=== PATIENT | male | born 1970 | race Hispanic/Latino ===

== ENCOUNTER 2024-01-16 12:45 | Emergency (ER) | payer SELFPAY ==
[2024-01-16 13:09] LABS: % Basophils 0.3 % (0-2); % Eosinophils 0.2 % (0-6); % Immature Granulocytes 0.6 % (0-0.5); % Lymphocytes 17.3 % (20.5-51.1); % Monocytes 3.9 % (1.7-9.3); % Neutrophils 77.7 % (42.2-75.2); Absolute Basophils 0.1 10^3/uL (0-0.2); Absolute Immature Granulocytes 0.1 10^3/uL (0-0.05); Absolute Lymphocytes 3.3 10^3/uL (1.2-3.4); Absolute Monocytes 0.7 10^3/uL (0.1-0.6); Absolute Neutrophils 14.5 10^3/uL (1.4-6.5); Hematocrit 42.6 % (39.0-52.0); Mean Corp Hgb Conc. 35.2 g/dL (33.0-37.0); Mean Corpuscular Hgb 29.8 pg (27.0-31.0); Mean Corpuscular Volume 84.7 fL (80.0-94.0); Nucleated Red Blood Cells % 0 % (-); Platelet Count 310 10^3/uL (130-400); Red Blood Cell Count 5.03 10^6/uL (4.70-6.10); Red Cell Dist. Width 12.8 % (11.5-14.5); White Blood Cell Count 18.7 10^3/uL (4.8-10.8)
[2024-01-16 13:24] LABS: ALT (SGPT) 33 U/L (0-50); AST (SGOT) 30 U/L (17-59); Albumin 4.7 g/dl (3.5-5.0); Alkaline Phosphatase 132 U/L (38-126); Blood Urea Nitrogen 21 mg/dl (9-20); Calcium 9.9 mg/dl (8.4-10.2); Carbon Dioxide 24 mmol/L (22-30); Chloride 104 mmol/L (98-107); Glucose 143 mg/dl (70-99); Lipase 81 U/L (23-300); Potassium 4.3 mmol/L (3.5-5.1); Sodium 136 mmol/L (135-145); Total Bilirubin 0.5 mg/dl (0.2-1.3); Total Protein 7.8 g/dl (6.3-8.2); eGFR > 60.00
--- NOTE | 2024-01-16 14:48 | ED.GENMED ---
History of Present Illness
General
Chief Complaint: Abdominal Pain
Source: patient
Exam Limitations: none
Time Seen by Provider: 01/16/24 14:48
Nursing documentation reviewed up to this point in time: agreed with
Travel History
Have you had any contact with someone who has COVID-19?: No
Do you have any symptoms of coronavirus? Fever > 100 degrees, chills, cough, shortness of breath, sore throat, loss of taste or smell, muscle aches, or headache?: No
History of Present Illness
History of Present Illness:
53-year-old male with no past medical history who is presenting to the emergency department today with left-sided abdominal pain radiating to the left groin, and left flank pain that started today. Patient was at work today, and was cutting wood
when he suddenly started to feel this pain. Patient states that he thought it was nothing at first and took some Tylenol, however the pain did not relieve with Tylenol and the pain continued to worsen. Patient is never had anything like this
before. Patient states some intermittent nausea but no vomiting. Patient states that any movement makes the pain worse. Patient denies dysuria, hematuria. Patient denies constipation or diarrhea. Patient denies any history of past abdominal
surgeries. Patient denies any chest pain, shortness of breath. Patient denies any allergies to any medications.
Review of Systems
Review of Systems
All Other Systems: ROS reviewed and negative except as documented in HPI and ROS
Phy Exam
Physical Exam
Physical Exam:
Vitals: Vital signs are stable
General: Patient is well appearing and in no acute distress; non-toxic
Skin: Warm and dry, no rashes or lesions
Head: Normocephalic, atraumatic
Eyes: Sclera non-icteric. EOMs intact. PERRLA.
Cardiac: Regular rate and rhythm. No murmurs.
Peripheral Vascular: No lower extremity edema.
Pulm: Normal respiratory effort, no wheezes, rales, or rhonchi.
Abdomen: Patient very tender to palpation in the left upper and left lower abdominal quadrants with pain radiating to the pelvis. Guarding present. No rebound tenderness. Left-sided CVA tenderness noted. No right-sided tenderness. No palpable
masses. Normoactive bowel sounds.
Musculoskeletal: Left-sided CVA tenderness. No palpable masses, no midline spinal tenderness.
Neuro: CN II-XII intact, no focal neurologic deficits.
Psychiatric: Appropriate mood and affect.
Course
Orders/Labs/Results
Orders:
Orders
01/16/24 12:53
ECG [Electrocardiogram (*1)] Urgent
Reason for Study: Abdominal Pain
EKG- Treatment ONCE
01/16/24 13:02
Complete Blood Count/With Diff Urgent
Comprehensive Metabolic Panel Urgent
Lipase Urgent
01/16/24 15:00
0.9% Sodium Chloride 1000 ml [Nss] 1,000 ml IV BOLUS
Ketorolac [Toradol] 15 mg IV NOW STA
01/16/24 15:02
CT Abd/pel Without Iv Or Oral Urgent
Comment:
Reason For Exam: left sided abdominal pain/flank pain
01/16/24 15:28
Urinalysis Reflex To Culture Urgent
Date Specimen was Collected: 01/16/24
Time Specimen was Collected: 15:08
01/16/24 15:42
HYDROmorphone [Dilaudid] 0.5 mg IV NOW STA
01/16/24 18:35
Acetaminophen [Tylenol] 1,000 mg PO NOW STA
01/16/24 18:40
HYDROmorphone [Dilaudid] 0.5 mg IV NOW STA
Abnormal Lab Results
01/16/24 01/16/24
13:02 15:28
WBC 18.7 H 10^3/uL
(4.8-10.8)
Abs Immat Gran (auto) 0.1 H 10^3/uL
(0-0.05)
Absolute Neuts (auto) 14.5 H 10^3/uL
(1.4-6.5)
Absolute Monos (auto) 0.7 H 10^3/uL
(0.1-0.6)
Immature Gran % 0.6 H %
(0-0.5)
Neutrophils % 77.7 H %
(42.2-75.2)
Lymphocytes % 17.3 L %
(20.5-51.1)
BUN 21 H mg/dl
(9-20)
Glucose 143 H mg/dl
(70-99)
Alkaline Phosphatase 132 H U/L
(38-126)
Urine Ketones Trace A
(Negative)
01/16/24 13:02
01/16/24 13:02
Vital Signs
Initial and Last Documented VS:
Initial Vital Signs
Temp Pulse Resp Pulse Ox
98.0 F 77 20 99
01/16/24 12:47 01/16/24 12:47 01/16/24 12:47 01/16/24 12:47
Last Documented Vital Signs
Temp Pulse Resp BP Pulse Ox
98.0 F 71 18 132/85 97
01/16/24 12:47 01/16/24 15:00 01/16/24 15:00 01/16/24 16:00 01/16/24 16:45
MDM/Problems Addressed
Differential Diagnosis Includes:
Differentials include nephrolithiasis, cystitis, pyelonephritis, diverticulitis, intra-abdominal abscess, gastroenteritis, musculoskeletal sprain/strain,
MDM/Problems Addressed:
Abdominal pain
Chronic conditions affecting care:
N/A
Acute Exacerbation and/or Progression of Chronic Illness:
N/A
*Pulse Oximetry
Patient hypoxic: no
*Critical Care Note
Total Time (30-74mins, 75-104mins- exclusive of procedures): Not Applicable
Data Reviewed
Review of Other/Old Records Reveals: Records (No previous ER records to review) and Discharge Summary (No discharge summary)
Source: patient and records
Patient Management
Escalation/DeEscalation of care consider admission/obs:
53-year-old male with no past medical history who is presenting to the emergency department today with left-sided abdominal pain radiating to the left groin, and left flank pain that started today. His CBC demonstrates leukocytosis and his CMP is
unremarkable. His urinalysis does not show any evidence of infection or trace blood. His CT scan reveals a 2.3 mm obstructing stone at the left UVJ. Considering patient is afebrile, he has no other associate symptoms of infection, his urinalysis
is negative, he has stable for outpatient trial of stone passage. I discussed patient that this may take a few days to pass, we discussed use of strainer for urine. Also discussed pain control and use of Flomax. Patient aware of plan. Case
reviewed with my attending Dr. Nolasco. Patient given urology follow-up referral information.
Update Note
Update Note:
5:16 pm-- Patient states he is feeling well and is not requesting anything further for pain
6:40 pm-- Upon discharge, patient states that he was feeling well and that he was okay with going home. When he was reassessed by nurse, patient's pain has returned. Patient was given another dose of Dilaudid, his friend is driving him home he was
with him in the ER today
ED Attending Note
-
Portions of this chart may have been created with voice recognition software.� Occasional wrong word or��sound alike� substitutions may have occurred due to the inherent limitations of voice recognition software.
Discharge Plan
Departure
Patient Disposition: Home (Routine Discharge)
Date of Disposition: 01/16/24
Time of Disposition: 18:11
Patient with high blood pressure during this ER visit?: Yes
Condition: Good
Discharge Problem:
Kidney stone on left side
Instructions: Kidney Stones (DC), Abdominal Pain, BLOOD PRESSURE
Prescriptions:
New
tamsulosin [Flomax] 0.4 mg capsule
0.4 mg PO DAILY Qty: 10 0RF
oxycodone 5 mg capsule
5 mg PO Q6H PRN (Reason: pain) Qty: 8 0RF
No Action
fexofenadine [Amara] 180 mg Tablet
180 mg PO DAILY PRN (Reason: seasonal allergies)
acetaminophen 500 mg Tablet
500 mg PO Q6H PRN (Reason: mild pain)
Referrals:
Tyler Anderson MD [Active] - Call in 1-3 days for appt
UNKNOWN - PT DOES,NOT KNOW [Family Provider] -
Stand Alone Forms: Return to Work
Activity Restrictions/Additional Instructions:
Every time you urinate, please use the strainer to monitor for stone passage.
UROLOGY FOLLOW UP
It is important that you follow up with a urologist considering this is your first kidney stone. Please call the number for Dr. Anderson's office to schedule a follow up appointment and say that you were seen here in the emergency department.
MEDICATION INSTRUCTIONS:
Flomax: Please take one tablet once daily until stone passage
Oxycodone: Please take Tylenol and Motrin for pain control. You can take 325 mg-1 g of Tylenol every 4-6 hours as needed for pain, do not exceed 4 g in 1 day. For Motrin, you can take 1 tablet every 4-6 hours as needed, do not exceed 1200 mg/day.
Should you have breakthrough pain as the stone passes, you can take 1 oxycodone tablet every 6 hours as needed.
PLEASE RETURN TO THE EMERGENCY DEPARTMENT SHOULD YOU EXPERIENCE FEVERS OR CHILLS, BURNING WITH URINATION, AN ACUTE WORSENING OF YOUR SYMPTOMS DESPITE MEDICATION MANAGEMENT, BLOOD IN YOUR URINE, INTRACTABLE VOMITING, CHEST PAIN, SHORTNESS OF BREATH,
OR ANY OTHER CONCERNING SIGNS OR SYMPTOMS.
Please follow up with your primary care provider.
Interventions
Interventions:
*Risk Screen - Suicide Last Done: 01/16/24 15:25
*General Assessment Last Done: 01/16/24 13:56
*Neglect/Abuse Screening Last Done: 01/16/24 19:03
ED- Fall Risk Assessment Last Done: 01/16/24 13:56
*ED COVID-19 Vaccine History Last Done: 01/16/24 12:47
*Nursing Disposition Last Done: 01/16/24 19:03
IN-[id number] Assessment Last Done: 01/16/24 15:25
Discharge Date and Time
Discharge Date/Time: 01/16/24 19:05
Print Language: LAO
[2024-01-16 15:00] VITALS: BP 144/97
[2024-01-16 15:11] VITALS: BP 135/93
[2024-01-16] MEDS: TORADOL 15 MG IV (15:19)
[2024-01-16] MEDS: NSS 1000 IV (15:19)
[2024-01-16 15:24] VITALS: BMI 26.6
[2024-01-16 15:40] LABS: Urine Albumin Trace (Neg - Trace); Urine Bilirubin Negative (Negative); Urine Character Clear (Clear); Urine Color Yellow; Urine Glucose Negative (Negative); Urine Ketone Trace (Negative); Urine Leukocyte Negative (Negative); Urine Nitrite Negative (Negative); Urine Occult Blood Negative (Negative); Urine Urobilinogen Negative (Neg - 1+)
[2024-01-16] MEDS: DILAUDID 0.5 MG IV ×2 (15:57→18:45)
[2024-01-16 16:00] VITALS: BP 132/85
== END 2024-01-16 19:05 | disposition home or self-care (01) ==
LOC: EMR 12:45
PROVIDERS: Emergency Medicine; Physician Assistant; EMERGENCY PHYSICIAN Emergency Medicine
DX: N20.0 Calculus of kidney (principal); R03.0 Elevated blood-pressure reading, without diagnosis of hypertension
CPT/HCPCS: 99285; 96374; 96375; 96361; 96376; 74176; 80053; 81003; 83690; 85025; 93005